=== PATIENT | male | born 1960 | race Caucasian/White ===

== ENCOUNTER → 2016-03-04 | Day surgery (SDC) | payer MEDICARE, MEDICAID ==
[~2016-03-04] MED LIST: ACETAMINOPHEN 1000MG/100 ML PREMIX IV ONE; BUPIVACAINE 0.25% W/EPI MPF 30ML VIAL IVP ONE; CEFAZOLIN 1 Gram 50 ML IVPB ONE; FENTANYL PF 100MCG/2ML VIAL IV ONE; HYDROCODONE/APAP 5/325MG TABLET PO ONE; KETOROLAC 30 MG/ML VIAL IVP ONE; LIDOCAINE 2% MDV (20MG/ML) 20ML VIAL IV ONE; MIDAZOLAM HCL 2MG/2ML VIAL IV ONE; MORPHINE SULFATE 5 MG/ML PFS IVP ONE; ONDANSETRON HCL IV 4 MG/2 ML VIAL IVP ONE; PROPOFOL 10 MG/ML VIAL IV ONE; SEVOFLURANE 250 ML INH ONE
[2016-03-04 10:46] LABS: BASO % 0.2 % (0-6); EOS % 1.7 % (0-6); GRAN % 64.1 % (47-80); HEMATOCRIT 45.5 % (42.0-52.0); HEMOGLOBIN 15.5 gm/dl (14.0-18.0); LYMPH % 26.4 % (16-45); MEAN CELL VOLUME 86.5 fl (81-97); MEAN CORPUSCULAR HEMOGLOBIN 29.5 pg (27-33); MEAN CORPUSCULAR HGB CONC 34.1 g/dl (32-36); MEAN PLATELET VOLUME 10.4 fl (7.4-10.4); MONO % 7.6 % (0-9); PLATELET COUNT 296 K/uL (130-400); RED BLOOD COUNT 5.26 M/uL (4.40-5.70); RED CELL DISTRIBUTION WIDTH 13.1 % (11.5-14.5); WHITE BLOOD COUNT W/O DIFF 8.3 K/uL (4.2-12.2)
[2016-03-04 10:57] LABS: ANION GAP 14.1 (7-16); BLOOD UREA NITROGEN 8 mg/dL (9-20); CARBON DIOXIDE 21.9 mmol/L (22-30); CREATININE 0.8 mg/dL (0.66-1.25); EST GLOMERULAR FILTRATION RATE > 60 ml/min; GLUCOSE,RANDOM 117 mg/dL (70-110)
--- NOTE | 2016-03-04 16:20 | Operative Note ---
DATE OF SURGERY: 03/04/16 REFERRING PHYSICIAN: JASMIN SEGURA M.D. PREOPERATIVE DIAGNOSIS: INCARCERATED UMBILICAL HERNIA. POSTOPERATIVE DIAGNOSIS: INCARCERATED UMBILICAL HERNIA. SURGEON: ANDRE TOURE D.O. OPERATION: OPEN UMBILICAL HERNIORRHAPHY WITH MESH. INDICATION: This patient is a 55-year-old male who presented to the clinic with pain and bulging in his umbilical region. We did discuss repair versus observation; he desired surgical intervention. The risks include but not limited to; bleeding, infection, acute/chronic pain, recurrence, and he understood this fully. PROCEDURE: Therefore, consent was signed and questions answered, he was taken to the Operating Room and placed in the supine position. General anesthesia was administered per the Department of Anesthesia. The patient's abdomen was prepped and draped in the usual sterile fashion. A curvilinear infraumbilical incision was made and this was carried down to the anterior rectus fascia. The umbilical skin was dissected free from the underlying hernia sac and reflected in a cephalad direction. Clean circumferential fascial edges were obtained. The hernia sac was then scored at its neck and amputated. The hernia defect was about 1 cm. A 6.4 cm Ventralight mesh was obtained. This was placed in the intraperitoneal position. This was sutured into the anterior rectus fascia with 2-0 Vicryl in six spots. At this time, the skin was tacked down to the inferior aspect of the inferior aspect of the hernia fascia. The skin was closed with 3- 0 and 4-0 Vicryl and he was taken to the Recovery Room in satisfactory condition. FINDINGS AT THE TIME OF SURGERY: INCARCERATED UMBILICAL HERNIA REPAIRED ABOVE. Andre Toure D.O. Date & Time cc: Dr. Segura JOB NUMBER: [id number] [facility]
== END | disposition home or self-care (01) ==
LOC: SUR 10:28
PROVIDERS: ATTEND Surgery
DX: K42.9 Umbilical hernia without obstruction or gangrene (principal); I10 Essential (primary) hypertension
CPT/HCPCS: 85025; 80048; 49587; 00840; J1885; J2405; J3010; J0690; J2270

== ENCOUNTER 2016-12-21 10:53 | Emergency (ER) | payer MEDICARE, MEDICAID ==
--- NOTE | 2016-12-21 11:42 | Emergency Department Record ---
History of Present Illness - General Chief Complaint: Back Pain/Injury Stated Complaint: BACK PAIN Time Seen by Provider: 12/21/16 11:37 Source: Patient - History of Present Illness Initial Comments: The patient was in his living room. When he tood up his right hip gave way" and he fell to the floor, injuring his low back and hip. He states he has arthritis , states it's "rheumatoid," and that he takes cymbalta for it. Complaint: Back pain, Back injury, Fall Onset/Timin -: Hour(s) Similar Symptoms Previously: Yes Place: Home Severity scale (1-10): 10 Quality: Sharp Consistency: Constant Improves With: Immobilization Worsens With: Deep breaths/cough, Movement Context: Other Associated Symptoms: Denies other symptoms - Related Data Home Medications Medication Instructions Recorded Confirmed Last Taken Duloxetine HCl [Cymbalta] 60 mg PO ASDIR 12/21/16 12/21/16 12/21/16 Meloxicam [Meloxicam] 15 mg PO ASDIR 12/21/16 12/21/16 12/21/16 Previous Rx's Medication Instructions Recorded Albuterol Sulfate [Ventolin Hfa] 1 - 2 puff IH .EVERY 4-6 HRS PRN 10/12/14 #1 inhaler Diazepam [Valium] 5 mg PO Q8H PRN #20 tab 12/21/16 Allergies Allergy/AdvReac Type Severity Reaction Status Date / Time codeine AdvReac NAUSEA Verified 12/21/16 11:01 Travel Screening - Travel/Exposure Within Last 30 Days Have you traveled within the last 30 days?: No - Travel/Exposure Within Last Year Have you traveled outside the [place] in the last year?: No - Additonal Travel Details Have you been exposed to anyone with a communicable illness?: No - Travel Symptoms Symptom Screening: None Review of Systems Reviewed: No additional complaints except as noted below Constitutional: Reports: As per HPI. Denies: Chills, Fever, Malaise, Night sweats, Weakness, Weight change Eyes: Reports: As per HPI. Denies: Eye discharge, Eye pain, Photophobia, Vision change ENT: Reports: As per HPI. Denies: Congestion, Dental pain, Ear pain, Epistaxis , Hearing loss, Throat pain Respiratory: Reports: As per HPI. Denies: Cough, Dyspnea, Hemoptysis, Stridor, Wheezes Cardiovascular: Reports: As per HPI. Denies: Arrhythmia, Chest pain, Dyspnea on exertion, Edema, Murmurs, Orthopnea, Palpitations, Paroxysmal nocturnal dyspnea, Rheumatic Fever, Syncope Endocrine: Reports: As per HPI. Denies: Fatigue, Heat or cold intolerance, Polydipsia, Polyuria Gastrointestinal: Reports: As per HPI. Denies: Abdominal pain, Constipation, Diarrhea, Hematemesis, Hematochezia, Melena, Nausea, Vomiting Genitourinary: Reports: As per HPI. Denies: Dysuria, Frequency, Hematuria, Incontinence, Retention, Testicular pain, Testicular mass, Urgency Musculoskeletal: Reports: As per HPI. Denies: Arthralgia, Back pain, Gout, Joint swelling, Myalgia, Neck pain Skin: Reports: As per HPI. Denies: Bruising, Change in color, Change in hair/ nails, Lesions, Pruritus, Rash Neurological: Reports: As per HPI. Denies: Abnormal gait, Confusion, Headache, Numbness, Paresthesias, Seizure, Tingling, Tremors, Vertigo, Weakness Psychiatric: Reports: As per HPI. Denies: Anxiety, Auditory hallucinations, Depression, Homicidal thoughts, Suicidal thoughts, Visual hallucinations Hematological/Lymphatic: Reports: As per HPI. Denies: Anemia, Blood Clots, Easy bleeding, Easy bruising, Swollen glands Past Medical History - SOCIAL HISTORY Smoking Status: Former smoker Alcohol Use: Rare Drug Use: None - RESPIRATORY Hx Respiratory Disorders: Yes Hx COPD: Yes Comment:: EMPHYSEMA - CARDIOVASCULAR Hx Cardio Disorders: Yes Hx Chest Pain: Yes (heart races from time to time) Hx Hypertension: Yes Hx Irregular Heartbeat: Yes - NEURO Hx Neuro Disorders: Yes Hx Neuropathy: Yes (left hand) - GI Hx GI Disorders: Yes Hx Hepatitis/Jaundice: Yes (TREATED WITH MEDS AND INJECTIONS) Hx of Polyps: Yes (COLON BENIGN) - Hx Genitourinary Disorders: No - ENDOCRINE Hx Endocrine Disorders: No - MUSCULOSKELETAL Hx Musculoskeletal Disorders: Yes Hx Arthritis: Yes (RA) Comment:: UMBILICAL HERNIA - PSYCH Hx Psych Problems: No - HEMATOLOGY/ONCOLOGY Hx Hematology/Oncology Disorders: No Family Medical History Any Significant Family History?: Yes Hx Cancer: Mother, Grandparents *Cancer Comment: colon Hx HTN: Father Hx Stroke: Father Physical Exam - General General Appearance: Alert, Oriented x3, Cooperative, Mild distress - Head Head exam: Atraumatic, Normal inspection - Eye Eye exam: Normal appearance, PERRL Pupils: Normal accommodation - ENT ENT exam: Normal exam, Mucous membranes moist, Normal external ear exam, Normal orophraynx, TM's normal bilaterally Ear exam: Normal external inspection. negative: External canal tenderness Nasal Exam: Normal inspection. negative: Discharge, Sinus tenderness Mouth exam: Normal external inspection, Tongue normal Teeth exam: Normal inspection. negative: Dental caries Throat exam: Normal inspection. negative: Tonsillar erythema, Tonsillar exudate - Neck Neck exam: Normal inspection, Full ROM, Other (no bony tenderness). negative: Lymphadenopathy, Meningismus, Tenderness - Respiratory Respiratory exam: Normal lung sounds bilaterally. negative: Respiratory distress - Cardiovascular Cardiovascular Exam: Regular rate, Normal rhythm, Normal heart sounds - GI/Abdominal GI/Abdominal exam: Soft, Normal bowel sounds. negative: Tenderness - Rectal Rectal exam: Deferred - exam: Deferred - Extremities Extremities exam: Normal inspection, Full ROM, Normal capillary refill. negative: Calf tenderness, Pedal edema, Tenderness - Back Back exam: Reports: Normal inspection, Full ROM, Other (tender overright SI region, sacrum and right hip laterally). Denies: CVA tenderness (R), CVA tenderness (L), Muscle spasm, Paraspinal tenderness, Rash noted, Tenderness, Vertebral tenderness - Neurological Neurological exam: Alert, Normal gait, Oriented X3, Reflexes normal - Psychiatric Psychiatric exam: Normal affect, Normal mood - Skin Skin exam: Dry, Intact, Normal color, Warm Course Vital Signs 12/21/16 11:04 Temperature 98.5 F Pulse Rate 87 Respiratory 16 Rate Blood Pressure 146/92 Pulse Ox 95 - Reevaluation(s) Reevaluation #1: Patient has returned from xray and requests a pain shot. 12/21/16 12:14 Reevaluation #2: Thepatient prefers non narcotic medications. States he will take his mexolicam along with valium script. He will recheck next week with his PCP. 12/21/16 12:23 Medical Decision Making - Management Options MDM Management: No Additional Work-up Planned - Data Complexity MDM Data: X-Ray Ordered and/or Reviewed (Right hip and pelvis xrays: no fractures, arthritis of right hip per radiologist.) Disposition Disposition: Discharge Clinical Impression: Acute pain of right hip Low back pain Qualifiers: Chronicity: acute Back pain laterality: right Sciatica presence: with sciatica Sciatica laterality: sciatica of right side Qualified Code(s): M54.41 - Lumbago with sciatica, right side Disposition: Home, Self-Care Condition: (1) Good Instructions: Low Back Strain (ED) Additional Instructions: Ice to contusions. Valium 5 mg three times daily. Use your meloxicam as directed as needed for pain. No lifting bending twisting. Follow up with PCP next week. Prescriptions: Diazepam [Valium] 5 mg PO Q8H PRN #20 tab PRN Reason: Muscle Spasms Forms: Patient Portal Access Quality - Quality Measures Quality Measures: N/A - Blood Pressure Screening Does Patient Have Any of the Following: No Blood Pressure Classification: Hypertensive Reading Systolic Measurement: 146 Diastolic Measurement: 92 Screening for High Blood Pressure: < Normal BP, F/U Not Required > [G8712]
[2016-12-21] MEDS ORDERED: ORPHENADRINE CITRATE 60MG/2ML VIAL IM ONE (12:12)
[2016-12-21] MEDS ORDERED: KETOROLAC 30 MG/ML VIAL IM ONE (12:13)
--- NOTE | 2016-12-22 14:35 | RADIOLOGY REPORT ---
EXAM: PELVIS, COMPLETE 3 VIEWS HISTORY: RIGHT HIP PAIN SINCE LAST NIGHT. FALL. SACRAL PAIN. TECHNIQUE: Three views of the pelvis were obtained. COMPARISON: Right hip from the same date. FINDINGS: The bones appear intact. There is no acute fracture or dislocation. There are mild arthritic changes within the right hip. IMPRESSION: 1. NO ACUTE HIP OR PELVIC PATHOLOGY. 2. MILD ARTHRITIC CHANGES WITHIN THE RIGHT HIP. JOB NUMBER: [id number] [facility]
--- NOTE | 2016-12-22 14:37 | RADIOLOGY REPORT ---
EXAM: HIP,UNILAT, 2-3 VIEW RIGHT HISTORY: RIGHT HIP PAIN SINCE LAST NIGHT. FALL. TECHNIQUE: AP and lateral views of the right hip were obtained. COMPARISON: Pelvis series from the same date. FINDINGS: The bones appear intact. There is no acute fracture or dislocation. The joint space is preserved. Small marginal osteophytes are present. The visualized portions of the bony pelvis appear intact. IMPRESSION: 1. NO ACUTE HIP PATHOLOGY. 2. MILD ARTHRITIC CHANGES. JOB NUMBER: [id number] [facility]
== END 2016-12-21 12:55 | disposition home or self-care (01) ==
LOC: ER 10:53
DX: M25.551 Pain in right hip (principal); M54.41 Lumbago with sciatica, right side; M06.9 Rheumatoid arthritis, unspecified
CPT/HCPCS: 99283; 96372; 99284; 72190; 73502; J1885; J2360

== ENCOUNTER 2018-08-01 07:14 | Emergency (ER) | payer MEDICARE, MEDICAID ==
[2018-08-01 07:48] LABS: ABSOLUTE NEUTROPHIL COUNT 5.74; BASO % 0.4 % (0-6); EOS % 1.4 % (0-6); GRAN % 47.4 % (47-80); HEMATOCRIT 43.5 % (42.0-52.0); LYMPH % 38.7 % (16-45); MEAN CORPUSCULAR HEMOGLOBIN 32.8 pg (27-33); MEAN CORPUSCULAR HGB CONC 34.5 g/dl (32-36); MEAN PLATELET VOLUME 10.3 fl (7.4-10.4); MONO % 12.1 % (0-9); PLATELET COUNT 287 K/uL (130-400); RED BLOOD COUNT 4.58 M/uL (4.40-5.70); RED CELL DISTRIBUTION WIDTH 14.2 % (11.5-14.5); WHITE BLOOD COUNT W/O DIFF 12.1 K/uL (4.2-12.2)
[2018-08-01 07:58] LABS: BLOOD UREA NITROGEN 14 mg/dL (6-20); CREATININE 1.2 mg/dL (0.7-1.2); EST GLOMERULAR FILTRATION RATE > 60 mL/min; TOTAL PROTEIN 7.6 g/dL (6.6-8.7)
[2018-08-01 08:00] LABS: GLUCOSE,RANDOM 89 mg/dL (74-109)
[2018-08-01 08:03] LABS: ALB/GLOB RATIO 1.5 (1.1-1.8); ALBUMIN 4.6 g/dL (4.0-5.0); ALKALINE PHOSPHATASE 115 U/L (40-129); ALT/SGPT 18 U/L (<41); AST/SGOT 33 U/L (10.0-50.0)
[2018-08-01 08:08] LABS: ALCOHOL 0.169 g/dL (0-0.010)
[2018-08-01 08:15] LABS: AMMONIA 33 umol/L (16.0-60.0)
[2018-08-01] MEDS ORDERED: MVI, ADULT NO.4 WITH VIT K 10 ML, THIAMINE HCL IV 100 MG in SOD CHLOR 0.9% WITH KCL 40M... IV ONE ×3 (08:23)
[2018-08-01] MEDS ORDERED: POTASSIUM CHLORIDE 20 MEQ TABLET PO ONE (08:24)
--- NOTE | 2018-08-01 09:37 | Emergency Department Record ---
History of Present Illness - General Chief Complaint: Confusion Stated Complaint: CONFUSED Time Seen by Provider: 08/01/18 07:30 Source: Patient, EMS Mode of Arrival: EMS Limitations: No limitations - History of Present Illness Initial Comments: pt brought in because he called 911 because he thought his brother in law was unresponsive. but as it turns out his brother in law wasnt even there and the pt was hallucinating. he drinks alcohol. his sister states this is unusual behaviour for him MD Complaint: Altered mental status, Confusion, Intoxication Onset/Timin -: Hour(s) Consistency: Now resolved Context: Alcohol abuse Associated Symptoms: Denies other symptoms - Related Data Home Medications Medication Instructions Recorded Confirmed Last Taken Ibuprofen [Ibu] 400 mg PO Q6H 08/01/18 08/01/18 Unknown Allergies Allergy/AdvReac Type Severity Reaction Status Date / Time codeine AdvReac NAUSEA Verified 01/07/17 08:24 Travel Screening - Travel/Exposure Within Last 30 Days Have you traveled within the last 30 days?: No Review of Systems Reviewed: No additional complaints except as noted below Constitutional: Reports: As per HPI. Denies: Chills, Fever, Malaise, Night sweats, Weakness, Weight change Eyes: Reports: As per HPI. Denies: Eye discharge, Eye pain, Photophobia, Vision change ENT: Reports: As per HPI. Denies: Congestion, Dental pain, Ear pain, Epistaxis, Hearing loss, Throat pain Respiratory: Reports: As per HPI. Denies: Cough, Dyspnea, Hemoptysis, Stridor, Wheezes Cardiovascular: Reports: As per HPI. Denies: Arrhythmia, Chest pain, Dyspnea on exertion, Edema, Murmurs, Orthopnea, Palpitations, Paroxysmal nocturnal dyspnea, Rheumatic Fever, Syncope Endocrine: Reports: As per HPI. Denies: Fatigue, Heat or cold intolerance, Polydipsia, Polyuria Gastrointestinal: Reports: As per HPI. Denies: Abdominal pain, Constipation, Diarrhea, Hematemesis, Hematochezia, Melena, Nausea, Vomiting Genitourinary: Reports: As per HPI. Denies: Dysuria, Frequency, Hematuria, Incontinence, Retention, Testicular pain, Testicular mass, Urgency Musculoskeletal: Reports: As per HPI. Denies: Arthralgia, Back pain, Gout, Joint swelling, Myalgia, Neck pain Skin: Reports: As per HPI. Denies: Bruising, Change in color, Change in hair/nails, Lesions, Pruritus, Rash Neurological: Reports: As per HPI. Denies: Abnormal gait, Confusion, Headache, Numbness, Paresthesias, Seizure, Tingling, Tremors, Vertigo, Weakness Psychiatric: Reports: As per HPI. Denies: Anxiety, Auditory hallucinations, Depression, Homicidal thoughts, Suicidal thoughts, Visual hallucinations Hematological/Lymphatic: Reports: As per HPI. Denies: Anemia, Blood Clots, Easy bleeding, Easy bruising, Swollen glands Past Medical History - SOCIAL HISTORY Smoking Status: Former smoker Alcohol Use: Heavy - RESPIRATORY Hx Respiratory Disorders: Yes Hx COPD: Yes Comment:: EMPHYSEMA - CARDIOVASCULAR Hx Cardio Disorders: Yes Hx Chest Pain: Yes Hx Hypertension: Yes Hx Irregular Heartbeat: Yes - NEURO Hx Neuro Disorders: Yes Hx Neuropathy: Yes - GI Hx GI Disorders: Yes Hx Hepatitis/Jaundice: Yes Hx of Polyps: Yes - Hx Genitourinary Disorders: No - ENDOCRINE Hx Endocrine Disorders: No - MUSCULOSKELETAL Hx Musculoskeletal Disorders: Yes Hx Arthritis: Yes (RA) Comment:: UMBILICAL HERNIA - PSYCH Hx Psych Problems: Yes Hx Anxiety: Yes Hx Depression: Yes - HEMATOLOGY/ONCOLOGY Hx Hematology/Oncology Disorders: No Family Medical History Any Significant Family History?: Yes Hx Cancer: Mother, Grandparents *Cancer Comment: colon Hx HTN: Father Hx Stroke: Father Physical Exam - General General Appearance: Alert, Oriented x3, Cooperative, Mild distress - Head Head exam: Normal inspection - Eye Eye exam: Normal appearance, PERRL, EOMI Pupils: Normal accommodation - ENT ENT exam: Normal exam, Mucous membranes moist, Normal external ear exam, Normal orophraynx Ear exam: Normal external inspection. negative: External canal tenderness Nasal Exam: Normal inspection. negative: Discharge, Sinus tenderness Mouth exam: Normal external inspection, Tongue normal Teeth exam: Normal inspection. negative: Dental caries Throat exam: Normal inspection. negative: Tonsillar erythema, Tonsillar exudate - Neck Neck exam: Normal inspection, Full ROM. negative: Tenderness - Respiratory Respiratory exam: Normal lung sounds bilaterally. negative: Respiratory distress - Cardiovascular Cardiovascular Exam: Normal rhythm, Normal heart sounds, Tachycardia - GI/Abdominal GI/Abdominal exam: Soft, Normal bowel sounds. negative: Tenderness - Rectal Rectal exam: Deferred - exam: Deferred - Extremities Extremities exam: Normal inspection, Full ROM, Normal capillary refill. negative: Tenderness - Back Back exam: Reports: Normal inspection, Full ROM. 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 he did have a few hallucinations early in his visit where he thought someone was in his room. by his permission this was d/w his sister julito bae will take him to his doctor. pt has asked to be diacharged repeatedly Reevaluation #2: 08/01/18 14:24 pt is a&o x3 and is now sober Medical Decision Making - Lab Data Result diagrams: 08/01/18 06:50 08/01/18 13:39 Lab Results 08/01/18 08/01/18 Range/Units 06:50 06:50 WBC 12.1 (4.2-12.2) K/uL RBC 4.58 (4.40-5.70) M/uL Hgb 15.0 (14.0-18.0) gm/dl Hct 43.5 (42.0-52.0) % MCV 95.0 (81-97) fl MCH 32.8 (27-33) pg MCHC 34.5 (32-36) g/dl RDW 14.2 (11.5-14.5) % Plt Count 287 (130-400) K/uL MPV 10.3 (7.4-10.4) fl Gran % 47.4 (47-80) % Lymphocytes % 38.7 (16-45) % Monocytes % 12.1 H (0-9) % Eosinophils % 1.4 (0-6) % Basophils % 0.4 (0-6) % Absolute Neutrophils 5.74 Sodium 140 (136-145) mmol/L Potassium 2.8 L* (3.4-4.5) mmol/L Chloride 93 L (98-107) mmol/L Carbon Dioxide 26.0 (22-29) mmol/L Anion Gap 21.0 H (7-16) BUN 14 (6-20) mg/dL Creatinine 1.2 (0.7-1.2) mg/dL Estimated GFR > 60 mL/min Random Glucose 89 (74-109) mg/dL Calcium 9.4 (8.6-10.0) mg/dL Total Bilirubin 0.40 (0.2-1.0) mg/dL AST 33 (10.0-50.0) U/L ALT 18 (<41) U/L Alkaline Phosphatase 115 (40-129) U/L Ammonia 33 (16.0-60.0) umol/L Total Protein 7.6 (6.6-8.7) g/dL Albumin 4.6 (4.0-5.0) g/dL Globulin 3.0 (1.4-4.8) gm/dL Albumin/Globulin Ratio 1.5 (1.1-1.8) Ethyl Alcohol 0.169 H (0-0.010) g/dL Disposition Disposition: Discharge Clinical Impression: Visual hallucinations, Alcohol abuse Disposition: Home, Self-Care Condition: (1) Good Instructions: Hallucinations (ED), Abuse of Alcohol (ED), At-Risk Alcohol Use (ED), Polysubstance Abuse (ED) Additional Instructions: follow up with family doctor. return sooner if worse. decrease alcohol. Forms: Patient Portal Access Quality - Quality Measures Quality Measures: N/A - Blood Pressure Screening Does Patient Have Any of the Following: No Blood Pressure Classification: Pre-Hypertensive BP Reading Systolic Measurement: 126 Diastolic Measurement: 73 Screening for High Blood Pressure: < Pre-Hypertensive BP, F/U Documented > [G8950] Pre-Hypertensive Follow-up Interventions: Follow-up with rescreen every year.
[2018-08-01 13:58] LABS: TRICYCLIC ANTIDEPRESSANT SCRN DETECTED
[2018-08-01 13:59] LABS: AMPHETAMINE SCREEN URINE NOT DETECTED; BARBITURATE SCREEN URINE NOT DETECTED; BENZODIAZEPINE SCREEN URINE NOT DETECTED; COCAINE SCREEN URINE NOT DETECTED; METHADONE SCREEN URINE NOT DETECTED; METHAMPHETAMINE SCREEN NOT DETECTED; OPIATE SCREEN URINE DETECTED; OXYCODONE SCREEN URINE DETECTED; PHENCYCLIDINE SCREEN URINE NOT DETECTED; PROPOXYPHENE SCREEN URINE NOT DETECTED; THC SCREEN URINE DETECTED
[2018-08-01 14:02] LABS: URINE APPEARANCE CLEAR; URINE BILIRUBIN NEGATIVE (NEGATIVE); URINE BLOOD NEGATIVE (NEGATIVE); URINE COLOR YELLOW; URINE GLUCOSE (UA) NEGATIVE (NEGATIVE); URINE KETONE TRACE (NEGATIVE); URINE LEUKOCYTE ESTERASE NEGATIVE (NEGATIVE); URINE NITRITE NEGATIVE (NEGATIVE); URINE PROTEIN NEGATIVE (NEGATIVE); URINE UROBILINOGEN 0.2 E.U./dL (0.20 - 1.00)
--- NOTE | 2018-08-03 06:16 | CT SCAN REPORT ---
DATE: 08/01/2018 at 0745. EXAM: CT OF THE BRAIN WITHOUT CONTRAST. HISTORY: DIZZINESS. NO KNOWN INJURY. TECHNIQUE: Routine noncontrast CT of the brain. COMPARISON: CT of the brain without and with contrast dated 11/23/2013. MRI of the brain without and with contrast dated 12/26/2013. FINDINGS: The subarachnoid spaces and ventricles remain normal in size. No new suspicious area of abnormally increased or decreased attenuation is noted throughout the brain substance. No abnormal extra-axial fluid collection is seen. No new asymmetry of the middle cerebral arteries. There is atherosclerotic calcification involving the cavernous internal carotid arteries. The visualized paranasal sinuses and right mastoid air cells are clear. There is opacification of a few inferior left mastoid air cells consistent with nonspecific effusion. No associated bony destruction. IMPRESSION: 1. NO CT EVIDENCE OF ACUTE MAJOR VESSEL INFARCT, INTRACRANIAL HEMORRHAGE, NOR MASS WITHOUT SIGNIFICANT CHANGE IN APPEARANCE OF THE BRAIN SINCE 11/23/2013. 2. OPACIFICATION OF A FEW INFERIOR LEFT MASTOID AIR CELLS CONSISTENT WITH NONSPECIFIC EFFUSION. THIS IS NEW SINCE THE 2013 EXAMINATION. Job Number: [id number] [facility]
== END 2018-08-01 14:34 | disposition home or self-care (01) ==
LOC: ER 07:14
DX: F10.151 Alcohol abuse with alcohol-induced psychotic disorder with hallucinations (principal); R42 Dizziness and giddiness; F11.90 Opioid use, unspecified, uncomplicated; I10 Essential (primary) hypertension; Y90.6 Blood alcohol level of 120-199 mg/100 ml
CPT/HCPCS: 70450; 80053; 80305; 80320; 81003; 82140; 84132; 85025; 96365; 96366; 99284; J3411

== ENCOUNTER 2019-01-16 10:42 | Emergency (ER) | payer MEDICARE, MEDICAID, OTHER ==
[2019-01-16 11:09] LABS: URINE APPEARANCE CLEAR; URINE BILIRUBIN NEGATIVE (NEGATIVE); URINE BLOOD NEGATIVE (NEGATIVE); URINE COLOR YELLOW; URINE GLUCOSE (UA) NEGATIVE (NEGATIVE); URINE KETONE NEGATIVE (NEGATIVE); URINE LEUKOCYTE ESTERASE NEGATIVE (NEGATIVE); URINE NITRITE NEGATIVE (NEGATIVE); URINE PROTEIN NEGATIVE (NEGATIVE); URINE UROBILINOGEN 0.2 E.U./dL (0.20 - 1.00)
--- NOTE | 2019-01-16 11:26 | Emergency Department Record ---
History of Present Illness - General Chief complaint: Male Urogenital Problem Stated complaint: MALE UROGENTIAL Time Seen by Provider: 01/16/19 11:24 Source: Patient Mode of Arrival: Ambulatory Limitations: No limitations - History of Present Illness Initial comments: Pt to the ED from home with complaint of swelling to the penis. Pt noted this AM. Normal last PM. Pt denies pain, is able to urinate without pain. Pt states not sexually active with a partner for 14 years. Does admit to masturbation this AM prior to onset of swelling. Onset/Timin -: Minutes(s) Location: Penis Radiation: None Reports: Denies other symptoms - Related Data Sexually active: No Allergies Allergy/AdvReac Type Severity Reaction Status Date / Time codeine AdvReac NAUSEA Verified 01/16/19 10:47 Travel Screening - Travel/Exposure Within Last 30 Days Have you traveled within the last 30 days?: No - Travel/Exposure Within Last Year Have you traveled outside the [place] in the last year?: No - Additonal Travel Details Have you been exposed to anyone with a communicable illness?: No - Travel Symptoms Symptom Screening: None Review of Systems Constitutional: Denies: Chills Eyes: Denies: Eye pain ENT: Denies: Congestion Respiratory: Denies: Cough Cardiovascular: Denies: Chest pain Gastrointestinal: Denies: Abdominal pain, Vomiting Genitourinary: Denies: Discharge, Dysuria, Frequency, Hematuria, Testicular pain Musculoskeletal: Denies: Back pain Skin: Denies: Bruising Neurological: Denies: Headache Psychiatric: Denies: Anxiety Hematological/Lymphatic: Denies: Anemia Past Medical History - SOCIAL HISTORY Smoking Status: Former smoker Alcohol Use: Occasional Drug Use: Occasional Drug Use Detail:: Marijuana - RESPIRATORY Hx Respiratory Disorders: Yes Hx COPD: Yes Comment:: EMPHYSEMA - CARDIOVASCULAR Hx Cardio Disorders: Yes Hx Chest Pain: Yes Hx Hypertension: Yes Hx Irregular Heartbeat: Yes - NEURO Hx Neuro Disorders: Yes Hx Neuropathy: Yes - GI Hx GI Disorders: Yes Hx Hepatitis/Jaundice: Yes Hx of Polyps: Yes - Hx Genitourinary Disorders: No - ENDOCRINE Hx Endocrine Disorders: No - MUSCULOSKELETAL Hx Musculoskeletal Disorders: Yes Hx Arthritis: Yes (RA) Comment:: UMBILICAL HERNIA - PSYCH Hx Psych Problems: Yes Hx Anxiety: Yes Hx Depression: Yes - HEMATOLOGY/ONCOLOGY Hx Hematology/Oncology Disorders: No Family Medical History Any Significant Family History?: Yes Hx Cancer: Mother, Grandparents *Cancer Comment: colon Hx HTN: Father Hx Stroke: Father Physical Exam - General General Appearance: Alert, Oriented x3, Cooperative, No acute distress - Head Head exam: Normal inspection - Eye Eye exam: PERRL - ENT ENT exam: Mucous membranes moist - Respiratory Respiratory exam: negative: Respiratory distress - GI/Abdominal GI/Abdominal exam: Soft. negative: Tenderness - exam: Circumcision, Other (distal 1/3 of penis with soft tissue swelling. No skin abrasion or erythema. Non tender. Circumfrential without constriction. ). negative: Scrotal swelling, Testicular tenderness, Urethral discharge - Back Back exam: Reports: Normal inspection - Neurological Neurological exam: Alert, Normal gait, Oriented X3 - Psychiatric Psychiatric exam: Normal affect, Normal mood - Skin Skin exam: Normal color Course Vital Signs 01/16/19 10:48 Temperature 98.4 F Pulse Rate 86 Respiratory 18 Rate Blood Pressure 136/68 Pulse Ox 98 - Reevaluation(s) Reevaluation #1: 01/16/19 11:36 Pt with swelling to soft tissue of penis. No other issues noted. Discussed ice over underwear for swelling. Discussed being nikko with area until resolved. Pt understands. Medical Decision Making - Lab Data Lab Results 01/16/19 Range/Units 11:00 Urine Color Yellow Urine Appearance Clear Urine pH 7.5 (5.0-8.0) Ur Specific Ramona 1.020 (1.002-1.030) Urine Protein Negative (NEGATIVE) Urine Glucose (UA) Negative (NEGATIVE) Urine Ketones Negative (NEGATIVE) Urine Blood Negative (NEGATIVE) Urine Nitrite Negative (NEGATIVE) Urine Bilirubin Negative (NEGATIVE) Urine Urobilinogen 0.2 (0.20 - 1.00) E.U./dL Ur Leukocyte Esterase Negative (NEGATIVE) Disposition Disposition: Discharge Clinical Impression: Penile edema Disposition: Home, Self-Care Condition: (1) Good Instructions: Edema (ED) Additional Instructions: Rest Ice pack to penis - not directly to skin. 20 minutes on and off as needed. Family doctor recheck as needed. Return to the ED as needed. Forms: Patient Portal Access Time of Disposition: 11:26 Quality - Quality Measures Quality Measures: N/A - Blood Pressure Screening Does Patient Have Any of the Following: No Blood Pressure Classification: Pre-Hypertensive BP Reading Systolic Measurement: 136 Diastolic Measurement: 68 Screening for High Blood Pressure: < Pre-Hypertensive BP, F/U Documented > [G8950] Pre-Hypertensive Follow-up Interventions: Follow-up with rescreen every year.
== END 2019-01-16 11:33 | disposition home or self-care (01) ==
LOC: ER 10:42
DX: N48.89 Other specified disorders of penis (principal); I10 Essential (primary) hypertension; Z87.891 Personal history of nicotine dependence
CPT/HCPCS: 81003; 99283